=== PATIENT | male | born 1970 ===

== ENCOUNTER 2020-08-19 15:01 | Emergency (ER) | payer OTHER ==
[~2020-08-19] VITALS: Ht 182.9 cm; Wt 72.6 kg
== END 2020-08-19 19:43 | disposition home or self-care (01) ==
LOC: ER 15:01
DX: S06.0X1A Concussion with loss of consciousness of 30 minutes or less, initial encounter (principal); S92.405A Nondisplaced unspecified fracture of left great toe, initial encounter for closed fracture
CPT/HCPCS: 70450; 73620; 99284-25